=== PATIENT | male | born 1980 | race African-American/Black ===

== ENCOUNTER 2020-12-15 00:30 | Emergency (ER) | payer SELFPAY ==
[~2020-12-15] VITALS: Ht 175.3 cm; Wt 72.6 kg
== END 2020-12-15 04:22 | disposition left against medical advice (07) ==
LOC: ER 00:32
DX: Z04.1 Encounter for examination and observation following transport accident (principal); Z53.21 Procedure and treatment not carried out due to patient leaving prior to being seen by health care provider; V89.2XXA Person injured in unspecified motor-vehicle accident, traffic, initial encounter; Y93.89 Activity, other specified; Y92.89 Other specified places as the place of occurrence of the external cause; Y99.8 Other external cause status